=== PATIENT | female | born 2000 | race Two or more races ===

== ENCOUNTER 2020-11-22 12:18 | Outpatient (CLI) | payer OTHER | END 2020-11-22 12:53 | disposition home or self-care (01) | LOC: NST 12:18 | PROVIDERS: ATTEND Obstetrics & Gynecology Maternal & Fetal Medicine | DX: Z34.83 Encounter for supervision of other normal pregnancy, third trimester (principal) ==

== ENCOUNTER 2020-12-30 10:10 | Outpatient (CLI) | payer OTHER | END 2020-12-30 11:39 | disposition home or self-care (01) | LOC: NST 10:10 | PROVIDERS: ATTEND Obstetrics & Gynecology Maternal & Fetal Medicine | DX: Z34.83 Encounter for supervision of other normal pregnancy, third trimester (principal) ==

== ENCOUNTER 2020-12-30 14:00 | Inpatient (IN) | payer OTHER ==
[~2020-12-30] VITALS: Ht 149.9 cm; Wt 56.7 kg
[2021-01-08] MEDS ORDERED: PRENATAL CAPLE1 EAC1 PO (07:04)
== END 2021-01-10 14:02 | disposition home or self-care (01) | DRG 807 ==
LOC: OB/GYN 01-01 14:00 → LDR 01-08 06:27 → OB/GYN 01-08 16:03
PROVIDERS: ADMIT Obstetrics & Gynecology; ATTEND Obstetrics & Gynecology
PROC: 10E0XZZ Delivery of Products of Conception, External Approach (ICD-10-PCS; principal; 2021-01-08)
PROC: 0KQM0ZZ Repair Perineum Muscle, Open Approach (ICD-10-PCS; 2021-01-08)
PROC: 3E033VJ Introduction of Other Hormone into Peripheral Vein, Percutaneous Approach (ICD-10-PCS; 2021-01-08)
PROC: 4A1HXFZ Monitoring of Products of Conception, Cardiac Rhythm, External Approach (ICD-10-PCS; 2021-01-08)
DX: O70.1 Second degree perineal laceration during delivery (principal); Z37.0 Single live birth; Z3A.40 40 weeks gestation of pregnancy

== ENCOUNTER 2021-01-03 11:40 | Outpatient (CLI) | payer OTHER | END 2021-01-03 12:31 | disposition home or self-care (01) | LOC: NST 11:40 | PROVIDERS: ATTEND Obstetrics & Gynecology | DX: Z34.83 Encounter for supervision of other normal pregnancy, third trimester (principal) ==

== ENCOUNTER 2022-02-10 14:59 | Outpatient (CLI) | payer OTHER ==
[~2022-02-10 14:59] MED LIST: PRENATAL CAPLE1 EAC1 PO
== END 2022-02-10 16:41 | disposition home or self-care (01) ==
LOC: NST 14:59
PROVIDERS: ATTEND Obstetrics & Gynecology Gynecology
DX: Z34.82 Encounter for supervision of other normal pregnancy, second trimester (principal)

== ENCOUNTER 2022-04-10 11:15 | Outpatient (CLI) | payer OTHER | END 2022-04-10 12:06 | disposition home or self-care (01) | LOC: NST 11:15 | PROVIDERS: ATTEND Obstetrics & Gynecology Maternal & Fetal Medicine | DX: Z34.83 Encounter for supervision of other normal pregnancy, third trimester (principal) ==

== ENCOUNTER → 2022-05-01 | Outpatient (CLI) | payer OTHER | END | disposition home or self-care (01) | LOC: NST 11:25 | PROVIDERS: ATTEND Obstetrics & Gynecology | DX: Z34.83 Encounter for supervision of other normal pregnancy, third trimester (principal) ==

== ENCOUNTER 2022-05-06 04:27 | Inpatient (IN) | payer OTHER ==
[~2022-05-06] VITALS: Ht 149.9 cm; Wt 56.2 kg
== END 2022-05-08 14:59 | disposition home or self-care (01) | DRG 807 ==
LOC: LDR 04:27 → OB/GYN 13:46
PROVIDERS: ADMIT Obstetrics & Gynecology Maternal & Fetal Medicine; ATTEND Obstetrics & Gynecology Maternal & Fetal Medicine
PROC: 10E0XZZ Delivery of Products of Conception, External Approach (ICD-10-PCS; principal; 2022-05-06)
PROC: 4A1HXCZ Monitoring of Products of Conception, Cardiac Rate, External Approach (ICD-10-PCS; 2022-05-06)
DX: O80 Encounter for full-term uncomplicated delivery (principal); Z37.0 Single live birth; Z3A.39 39 weeks gestation of pregnancy; Z20.822 Contact with and (suspected) exposure to COVID-19